=== PATIENT | male | born 1990 | race Caucasian/White ===

== ENCOUNTER 2018-03-20 05:02 | Emergency (ER) | payer SELFPAY ==
--- NOTE | 2018-03-20 07:55 | ER Document Report ---
ED Oral Problem - General Chief Complaint: Toothache Stated Complaint: TOOTH PAIN Time Seen by Provider: 03/20/18 07:14 Notes: 27-year-old male no significant medical history to the emergency department for evaluation of left wisdom tooth pain. Patient states that his wisdom teeth are coming in. Was told he needed to have them taken out but has not been able to afford it. The teeth are coming through the skin and pushing on the other teeth causing swelling and significant amount of pain. - HPI Patient complains to provider of: Jaw pain, Swelling of face, Swelling of jaw, Toothache Onset: Last week Onset: Gradual Quality of pain: Throbbing Severity: Moderate Pain Level: 3 Swollen jaw/face: Moderate Associated symptoms: None - Related Data Allergies/Adverse Reactions: No Known Allergies Allergy (Verified 03/20/18 05:46) Past Medical History - General Information source: Patient - Social History Smoking Status: Current Some Day Smoker Chew tobacco use (# tins/day): No Frequency of alcohol use: Occasional Drug Abuse: None Lives with: Parents Family History: Reviewed & Not Pertinent Patient has suicidal ideation: No Patient has homicidal ideation: No Renal/ Medical History: Denies: Hx Peritoneal Dialysis Review of Systems - Review of Systems Constitutional: denies: Fever, Malaise, Weakness EENT: Mouth pain, Mouth swelling, Dental problem. denies: Eye pain, Double vision, Difficulty swallowing Cardiovascular: denies: Chest pain, Palpitations, Dyspnea Gastrointestinal: denies: Diarrhea, Nausea, Vomiting Neurological/Psychological: denies: Confusion, Weakness, Headaches, Numbness Physical Exam - Vital signs Vitals: Temp Pulse Resp BP Pulse Ox 97.3 F 65 18 154/97 H 99 03/20/18 05:30 03/20/18 05:30 03/20/18 05:30 03/20/18 05:30 03/20/18 05:30 Interpretation: Normal - HEENT Head: Normocephalic, Atraumatic Eyes: Normal Pupils: PERRL Nasal: Normal Mouth/Lips: Other - There appears to be swelling along the left lower gumline at the molar area/wisdom teeth. Left lower wisdom tooth has erupted. There is a small amount of gumline swelling and erythema noted on the left lower gumline. Very tender to palpation. There is no obvious drainable abscess. Pharynx: Normal - Respiratory Respiratory status: No respiratory distress Chest status: Nontender Breath sounds: Normal Chest palpation: Normal - Cardiovascular Rhythm: Regular Heart sounds: Normal auscultation Murmur: No - Neurological Neuro grossly intact: Yes Cognition: Normal Orientation: AAOx4 [place] Coma Scale Eye Opening: Spontaneous [place] Coma Scale Verbal: Oriented [place] Coma Scale Motor: Obeys Commands Yumiko Coma Scale Total: 15 Speech: Normal Motor strength normal: LUE, RUE, LLE, RLE Sensory: Normal Course - Re-evaluation Re-evalutation: 03/20/18 08:05 Scribe antibiotics, pain medication. Advised patient definitely needs to have these teeth extracted. Information given for the community clinic as well as follow-up information for a dentist and surgeon. Will place on antibiotics and pain medication at this time. - Vital Signs Vital signs: Temp Pulse Resp BP Pulse Ox 97.3 F 65 18 154/97 H 99 03/20/18 05:30 03/20/18 05:30 03/20/18 05:30 03/20/18 05:30 03/20/18 05:30 Discharge - Discharge Clinical Impression: Pain due to dental caries Condition: Good Disposition: HOME, SELF-CARE Instructions: [facility], Oral Narcotic Medication ([facility]), Toothache ([facility]) Additional Instructions: Take the medications as prescribed. In the event that symptoms are getting worse are you are developing any additional symptoms please return for repeat evaluation. It will be very important that you follow-up with an oral surgeon or dentist as this tooth needs to be extracted. Prescriptions: Amoxicillin 1 tab PO TID 7 Days #21 tab Hydrocodone/Acetaminophen [[place] 5-325 mg Tablet] 1 tab PO TID 3 Days #9 tablet Ibuprofen [Motrin 800 mg Tablet] 800 mg PO Q8H PRN 10 Days #30 tab PRN Reason: For Pain Scale 3-4 Referrals: JOSHUA MAYERS DDS [NO LOCAL MD] - Follow up in 3-5 days CARRIE SAM MD [ACTIVE STAFF] - Follow up in 3-5 days
[2018-03-20 08:14] VITALS: BP 148/78
== END 2018-03-20 08:14 | disposition home or self-care (01) ==
LOC: ER 05:02
DX: K02.9 Dental caries, unspecified (principal); K08.89 Other specified disorders of teeth and supporting structures; R68.84 Jaw pain; R22.0 Localized swelling, mass and lump, head; F17.200 Nicotine dependence, unspecified, uncomplicated
CPT/HCPCS: 99282

== ENCOUNTER 2019-11-15 21:00 | Emergency (ER) | payer SELFPAY ==
--- NOTE | 2019-11-15 22:32 | ER Document Report ---
ED General - General Chief Complaint: Cough Stated Complaint: COUGH CHEST PAIN PENIAL PAIN Time Seen by Provider: 11/15/19 22:31 Primary Care Provider: JULISSA LANGE DO [NO LOCAL MD] - Follow up as needed Mode of Arrival: Ambulatory Information source: Patient TRAVEL OUTSIDE OF THE [place] IN LAST 30 DAYS: No - HPI Onset: Other - over the last 3 weeks Onset/Duration: Gradual Quality of pain: No pain Severity: Mild Pain Level: 1 Associated symptoms: None Exacerbated by: Other - palpation/manipulation of penis Relieved by: Denies Similar symptoms previously: No Recently seen / treated by doctor: No Notes: 28 year old male smoker with no significant PMH here in the ER for 3 weeks of a dry cough, several days of right ear pain, and also for a small painful red raised area on the shaft of his penis for the last several weeks. The patient shaves his area and he noticed the area several days after shaving. The patient says he squeezed the area on his penis several days ago and blood and a small amount of pus came out. The patient denies fevers, chills, sweats, nausea, vomiting, urinary symptoms, penile discharge. The patient is sexually active with one partner currently and he does not use protection. - Related Data Allergies/Adverse Reactions: No Known Allergies Allergy (Verified 11/15/19 21:12) Past Medical History - General Information source: Patient - Social History Smoking Status: Current Every Day Smoker Frequency of alcohol use: Heavy Drug Abuse: Prescription drugs Lives with: Alone Family History: Reviewed & Not Pertinent Patient has suicidal ideation: No Patient has homicidal ideation: No Renal/ Medical History: Denies: Hx Peritoneal Dialysis Review of Systems - Review of Systems Constitutional: No symptoms reported EENT: Ear pain Cardiovascular: No symptoms reported Respiratory: Cough Gastrointestinal: No symptoms reported Genitourinary: No symptoms reported Male Genitourinary: Other - small painful red area on left lateral shaft of penis Musculoskeletal: No symptoms reported Skin: Lesions - on shaft of penis (appears to be a ingrown hair) Hematologic/Lymphatic: No symptoms reported Neurological/Psychological: No symptoms reported -: Yes All other systems reviewed and negative Physical Exam - Vital signs Vitals: Temp Pulse Resp BP Pulse Ox 98.6 F 103 H 16 115/90 H 100 11/15/19 21:12 11/15/19 21:12 11/15/19 21:12 11/15/19 21:12 11/15/19 21:12 - Notes Notes: GENERAL: Well-appearing, well-nourished and in no acute distress. HEAD: Atraumatic, normocephalic. EYES: Pupils equal round and reactive to light, extraocular movements intact, sclera anicteric, conjunctiva are normal. ENT: External ears normal, Right TM is scarred but there does not appears to be erythema or bulging. Left TM normal. Both ear canals without drainage. Nares patent, oropharynx clear without exudates. Moist mucous membranes. NECK: Normal range of motion, supple without lymphadenopathy or JVD. LUNGS: Breath sounds clear to auscultation bilaterally and equal. No wheezes rales or rhonchi. HEART: Regular rate and rhythm without murmurs, rubs or gallops. ABDOMEN: Soft, nontender, normoactive bowel sounds. No guarding, no rebound. No masses appreciated. : Patient has shaved his area. Small mildly tender red raised area on left shaft of penis without drainage, ulceration, pus. No other lesions noted anywhere. No vesicles. EXTREMITIES: Normal range of motion, no pitting or edema. No clubbing or cyanosis. NEUROLOGICAL: Cranial nerves II through XII grossly intact. Normal speech, normal gait. PSYCH: Normal mood, normal affect. SKIN: See exam. Otherwise Warm, Dry, normal turgor, no rashes or lesions noted. Course - Re-evaluation Re-evalutation: 11/15/19 23:21 The patient is here in the ER for 3 weeks of a cough. He is a smoker and his chest xray is clear. Patient also wanted a lesion on his penis that looks like an ingrown hair looked at while he was in the ER. The area is likely from an ingrown hair as the patient says he was able to express a small amount of blood and pus from the area and he recently shaved the area. The red raised area is not ulcerated and there is no vesicle and there are no other areas like it. There is no drainable collections. The patient apparently has chronic right ear infections and he started taking some old Amoxicillin which he says has helped. I gave him a script for a full week of Amoxicillin so he could finish a course. Patient has no PCP so he was given follow up options. Patient had Chlamydia and Gonorrhea testing done which I suspect will be negative. - Vital Signs Vital signs: Temp Pulse Resp BP Pulse Ox 98.2 F 86 16 146/97 H 97 11/15/19 23:46 11/15/19 23:46 11/15/19 23:46 11/15/19 23:46 11/15/19 23:46 - Laboratory Laboratory results interpreted by me: 11/15/19 22:51 Urine Protein 30 H Urine Ketones 20 H Urine Bilirubin SMALL H Urine Urobilinogen 4.0 H - Diagnostic Test Radiology reviewed: Image reviewed, Reports reviewed Discharge - Discharge Clinical Impression: Cough, Ingrown hair Condition: Stable Disposition: HOME, SELF-CARE Instructions: Cough Suppressant & Expectorant Medications Additional Instructions: Follow up with a primary care doctor such as Dr. Lange or at the [facility] if your cough persists and if the lesion on your penis does not heal with topical antibiotic ointment. You were tested for Gonorrhea and Chlamydia today. You will be called if either test results positives. You also had a chest xray in the ER which was normal in appearance. Use over the counter cough medications as needed. Try to stop smoking as this will only worsen your cough. Prescriptions: Amoxicillin 875 mg PO BID #14 tablet Referrals: JUILSSA LANGE DO [NO LOCAL MD] - Follow up as needed
[2019-11-15 23:22] LABS: APPEARANCE,URINE SLIGHTLY-CLOUDY; BILIRUBIN,URINE SMALL (NEGATIVE); COLOR,URINE AMBER; GLUCOSE, URINE NEGATIVE (NEGATIVE); KETONES,URINE 20 mg/dL (NEGATIVE); LEUKOCYTE ESTERASE,URINE NEGATIVE (NEGATIVE); NITRITE,URINE NEGATIVE (NEGATIVE); PROTEIN,URINE 30 mg/dL (NEGATIVE); URINE SPECIFIC GRAVITY 1.026
--- NOTE | 2019-11-15 23:24 | RADIOLOGY REPORT (SQ) ---
EXAM DESCRIPTION: AP portable view of the chest CLINICAL HISTORY: 28 years Male, eval for pneumonia COMPARISON: None. FINDINGS: Lungs: Lungs are clear. No pneumonia or edema. No pneumothorax or pleural effusion. Mediastinum: Cardiac and mediastinal silhouette are normal. Bones: Osseous structures are normal. IMPRESSION: Unremarkable single view of the chest. No acute process.
[2019-11-15 23:49] VITALS: BP 146/97
[2019-11-16 01:05] LABS: CHLAM PCR NOT DETECTED (NOT DETECT)
== END 2019-11-15 23:58 | disposition home or self-care (01) ==
LOC: ER 21:00
DX: L73.1 Pseudofolliculitis barbae (principal); R05 Cough; R07.9 Chest pain, unspecified; N48.89 Other specified disorders of penis; H92.01 Otalgia, right ear; F17.200 Nicotine dependence, unspecified, uncomplicated
CPT/HCPCS: 71045; 81001; 87491; 87591; 99283

== ENCOUNTER 2019-12-16 22:38 | Emergency (ER) | payer SELFPAY ==
--- NOTE | 2019-12-17 00:08 | RADIOLOGY REPORT (SQ) ---
EXAM DESCRIPTION: XR FOOT 1-2 VIEWS COMPLETED DATE/TME: 12/16/2019 00:00 CLINICAL HISTORY: 29 years, Male, bone pain COMPARISON: None. NUMBER OF VIEWS: 2 TECHNIQUE: 2 views right foot LIMITATIONS: None. FINDINGS: Dorsal soft tissue swelling. Negative for acute fracture or dislocation. No soft tissue gas or radiopaque foreign body IMPRESSION: Dorsal soft tissue swelling. copyright 2010 [employer]- All Rights Reserved
[2019-12-17] MEDS ORDERED: NAPROXEN 250 MG TABLET PO ONE (00:59)
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
[2019-12-17 01:41] VITALS: BP 142/89
== END 2019-12-17 01:42 | disposition home or self-care (01) ==
LOC: ER 22:38
DX: S90.31XA Contusion of right foot, initial encounter (principal); M79.671 Pain in right foot; W51.XXXA Accidental striking against or bumped into by another person, initial encounter; F17.200 Nicotine dependence, unspecified, uncomplicated
CPT/HCPCS: 99283

== ENCOUNTER 2020-03-30 02:01 | Emergency (ER) | payer SELFPAY ==
[2020-03-30 04:56] LABS: APPEARANCE,URINE CLEAR; BILIRUBIN,URINE NEGATIVE (NEGATIVE); COLOR,URINE YELLOW; GLUCOSE, URINE NEGATIVE (NEGATIVE); KETONES,URINE NEGATIVE (NEGATIVE); LEUKOCYTE ESTERASE,URINE NEGATIVE (NEGATIVE); NITRITE,URINE NEGATIVE (NEGATIVE); PROTEIN,URINE NEGATIVE (NEGATIVE); URINE SPECIFIC GRAVITY 1.027
[2020-03-30 06:08] LABS: ABSOLUTE BASOPHILS # (AUTO) 0.1 10^3/uL (0.0-0.2); ABSOLUTE EOSINOPHILS # (AUTO) 0.3 10^3/uL (0.0-0.6); ABSOLUTE LYMPHOCYTES (AUTO) 1.9 10^3/uL (0.5-4.7); ABSOLUTE MONOCYTES (AUTO) 0.7 10^3/uL (0.1-1.4); ABSOLUTE NEUT (AUTO) 7.3 10^3/uL (1.7-8.2); BASOPHILS % (AUTO) 0.9 % (0-2); EOSINOPHILS % (AUTO) 2.8 % (0-6); HEMATOCRIT 49.8 % (37.9-51.0); LYMPHOCYTES % (AUTO) 18.3 % (13-45); MEAN CORPUSCULAR HEMOGLOBIN 30.2 pg (27.0-33.4); MEAN CORPUSCULAR HGB CONC 34.1 g/dL (32.0-36.0); MEAN CORPUSCULAR VOLUME 88 fl (80-97); MONOCYTES % (AUTO) 6.8 % (3-13); PLATELET COUNT 230 10^3/uL (150-450); RED BLOOD COUNT 5.64 10^6/uL (4.35-5.55); RED CELL DISTRIBUTION WIDTH 13.1 % (11.5-14.0); SEGMENTED NEUTROPHILS % (AUTO) 71.2 % (42-78); TOTAL CELLS COUNTED % (AUTO) 100 %; WHITE BLOOD COUNT 10.2 10^3/uL (4.0-10.5)
[2020-03-30 06:18] LABS: ALBUMIN 4.3 g/dL (3.5-5.0); ALKALINE PHOSPHATASE 61 U/L (38-126); ANION GAP 8 (5-19); ASPARTATE AMINO TRANSFERASE 28 U/L (17-59); BILIRUBIN,DIRECT 0.2 mg/dL (0.0-0.4); BILIRUBIN,TOTAL 0.9 mg/dL (0.2-1.3); BLOOD UREA NITROGEN 17 mg/dL (7-20); CALCIUM 9.2 mg/dL (8.4-10.2); CARBON DIOXIDE 30 mmol/L (22-30); CHLORIDE 101 mmol/L (98-107); GLUCOSE 77 mg/dL (75-110); POTASSIUM 4.2 mmol/L (3.6-5.0); TOTAL PROTEIN 6.8 g/dL (6.3-8.2)
[2020-03-30 06:29] VITALS: BP 135/91
--- NOTE | 2020-03-30 09:03 | ER Document Report ---
ED GI/ - General Chief Complaint: Abdominal Pain Stated Complaint: MUSCLE PAIN Time Seen by Provider: 03/30/20 08:53 Primary Care Provider: NEERAJ PARISH MD [ACTIVE STAFF] - Follow up as needed JUAN F GOODMAN MD [ACTIVE STAFF] - Follow up as needed VERITO NEWMAN MD [ACTIVE STAFF] - Follow up as needed Mode of Arrival: Ambulatory Information source: Patient Notes: Patient states that he developed upper abdominal pain that wrapped around to the thoracic back area that started yesterday around 8 PM. Patient states that he took multiple doses of Percocet at home in an attempt to manage his pain. Patient denies any nausea or vomiting but does report diarrhea x1 episode. Patient denies any fever, cough or cold symptoms. Patient denies any urinary symptoms. Patient reports pain is presently resolved at this time. TRAVEL OUTSIDE OF THE [place] IN LAST 30 DAYS: No - HPI Patient complains to provider of: Abdominal pain Onset: Yesterday Timing/Duration: Gone Quality of pain: Sharp Severity at maximum: Severe Severity in ED: None Pain Level: Denies Location: Other - Upper abdominal tenderness Associated symptoms: Diarrhea Exacerbated by: Denies Relieved by: Denies Similar symptoms previously: No Recently seen / treated by doctor: No - Related Data Allergies/Adverse Reactions: hydrocodone Allergy (Verified 03/30/20 03:27) Past Medical History - General Information source: Patient - Social History Smoking Status: Former Smoker Frequency of alcohol use: Quit alcohol 1 month ago Drug Abuse: Marijuana Occupation: Real estate Family History: Reviewed & Not Pertinent - Medical History Medical History: Negative Renal/ Medical History: Denies: Hx Peritoneal Dialysis Past Surgical History: Reports: Hx Adenoidectomy, Hx Appendectomy, Hx Myringoto my, Hx Orthopedic Surgery, Hx Tonsillectomy Review of Systems - Review of Systems Constitutional: No symptoms reported. denies: Fever EENT: No symptoms reported Cardiovascular: No symptoms reported. denies: Chest pain Respiratory: No symptoms reported. denies: Cough, Short of breath Gastrointestinal: Abdominal pain, Diarrhea. denies: Vomiting Genitourinary: No symptoms reported Male Genitourinary: No symptoms reported Musculoskeletal: Back pain Skin: No symptoms reported Hematologic/Lymphatic: No symptoms reported Neurological/Psychological: No symptoms reported Physical Exam - Vital signs Vitals: Temp Pulse Resp BP Pulse Ox 98.3 F 99 16 169/105 H 98 03/30/20 03:28 03/30/20 03:28 03/30/20 03:28 03/30/20 03:28 03/30/20 03:28 - Notes Notes: PHYSICAL EXAMINATION: GENERAL: Well-appearing and in no acute distress. HEAD: Atraumatic, normocephalic. EYES: sclera anicteric, conjunctiva are normal. ENT: nares patent. Moist mucous membranes. NECK: Normal range of motion, supple without lymphadenopathy LUNGS: CTAB and equal. No wheezes rales or rhonchi. HEART: Regular rate and rhythm without murmurs ABDOMEN: Soft, nontender, normal bowel sounds, no guarding. EXTREMITIES: Normal range of motion, no pitting edema. No cyanosis. BACK: No CVA tenderness NEUROLOGICAL: Cranial nerves grossly intact. Normal speech. Normal gait. PSYCH: Normal mood, normal affect. SKIN: Warm, Dry, normal turgor, no rashes or lesions noted Course - Re-evaluation Re-evalutation: 03/30/20 10:31 Patient denies any pain symptoms at this time. Abdomen soft, nontender, no guarding. Ultrasound reviewed without any evidence for any cholelithiasis. Patient does have incidental finding of fatty liver. Patient advised that this finding. Patient encouraged to follow-up with GI specialist for any persistent pain or problems. Patient presents with abdominal pain without signs of pe ritonitis or other life-threatening or serious etiology. Patient appears stable for discharge and has been instructed to return immediately if the symptoms worsen in any way. - Vital Signs Vital signs: Temp Pulse Resp BP Pulse Ox 98.3 F 62 16 135/91 H 99 03/30/20 03:28 03/30/20 06:18 03/30/20 03:28 03/30/20 06:18 03/30/20 06:18 - Laboratory Result Diagrams: 03/30/20 05:15 03/30/20 05:15 Laboratory results interpreted by me: 03/30/20 03/30/20 03:37 05:15 RBC 5.64 H Urine Urobilinogen 2.0 H 03/30/20 10:31 Labs- All tests 24 hr 03/30/20 03/30/20 03/30/20 03:37 05:15 05:15 WBC 10.2 RBC 5.64 H Hgb 17.0 Hct 49.8 MCV 88 MCH 30.2 MCHC 34.1 RDW 13.1 Plt Count 230 Lymph % (Auto) 18.3 Gage % (Auto) 6.8 Eos % (Auto) 2.8 Baso % (Auto) 0.9 Absolute Neuts (auto) 7.3 Absolute Lymphs (auto) 1.9 Absolute Monos (auto) 0.7 Absolute Eos (auto) 0.3 Absolute Basos (auto) 0.1 Seg Neutrophils % 71.2 Sodium 138.6 Potassium 4.2 Chloride 101 Carbon Dioxide 30 Anion Gap 8 BUN 17 Creatinine 0.76 Est GFR ( Amer) > 60 Est GFR (MDRD) Non-Af > 60 Glucose 77 Calcium 9.2 Total Bilirubin 0.9 Direct Bilirubin 0.2 Neonat Total Bilirubin Not Reportable Neonat Direct Bilirubin Not Reportable Neonat Indirect Bili Not Reportable AST 28 ALT 43 Alkaline Phosphatase 61 Creatine Kinase Total Protein 6.8 Albumin 4.3 Lipase 35.4 Urine Color YELLOW Urine Appearance CLEAR Urine pH 5.0 Ur Specific [place] 1.027 Urine Protein NEGATIVE Urine Glucose (UA) NEGATIVE Urine Ketones NEGATIVE Urine Blood NEGATIVE Urine Nitrite NEGATIVE Urine Bilirubin NEGATIVE Urine Urobilinogen 2.0 H Ur Leukocyte Esterase NEGATIVE Urine WBC (Auto) 0 Urine RBC (Auto) 0 Urine Mucus (Auto) MANY Urine Ascorbic Acid NEGATIVE 03/30/20 05:15 WBC RBC Hgb Hct MCV MCH MCHC RDW Plt Count Lymph % (Auto) Gage % (Auto) Eos % (Auto) Baso % (Auto) Absolute Neuts (auto) Absolute Lymphs (auto) Absolute Monos (auto) Absolute Eos (auto) Absolute Basos (auto) Seg Neutrophils % Sodium Potassium Chloride Carbon Dioxide Anion Gap BUN Creatinine Est GFR ( Amer) Est GFR (MDRD) Non-Af Glucose Calcium Total Bilirubin Direct Bilirubin Neonat Total Bilirubin Neonat Direct Bilirubin Neonat Indirect Bili AST ALT Alkaline Phosphatase Creatine Kinase 59 Total Protein Albumin Lipase Urine Color Urine Appearance Urine pH Ur Specific [place] Urine Protein Urine Glucose (UA) Urine Ketones Urine Blood Urine Nitrite Urine Bilirubin Urine Urobilinogen Ur Leukocyte Esterase Urine WBC (Auto) Urine RBC (Auto) Urine Mucus (Auto) Urine Ascorbic Acid - Diagnostic Test Radiology reviewed: Reports reviewed Discharge - Discharge Clinical Impression: Resolved abdominal pain Condition: Stable Disposition: HOME, SELF-CARE Instructions: Abdominal Pain ([facility]) Additional Instructions: Return immediately for any new or worsening symptoms Followup with your primary care provider, call tomorrow to make a followup appointment Follow-up with a hide inspector and sorter for any persistent pain or problems Referrals: VERITO NEWMAN MD [ACTIVE STAFF] - Follow up as needed JUAN F GOODMAN MD [ACTIVE STAFF] - Follow up as needed NEERAJ PARISH MD [ACTIVE STAFF] - Follow up as needed
--- NOTE | 2020-03-30 09:48 | RADIOLOGY REPORT (SQ) ---
EXAM DESCRIPTION: U/S ABDOMEN COMPLETE W/O DOP IMAGES COMPLETED DATE/TIME: 03/30/2020 9:33 am REASON FOR STUDY: upper abd pain COMPARISON: None. TECHNIQUE: Dynamic and static grayscale images acquired of the abdomen and recorded on PACS. Additio nal selected color Doppler and spectral images recorded. Note: Study does not meet criteria for complete doppler/duplex scan LIMITATIONS: None. FINDINGS: PANCREAS: No masses. Visualized pancreatic duct normal caliber. LIVER: Fatty infiltration with focal sparing about the gallbladder fossa. No focal mass lesion. No intrahepatic biliary dilatation. LIVER VASCULATURE: Normal directional flow of the main portal vein and hepatic veins. GALLBLADDER: No stones. Normal wall thickness. No pericholecystic fluid. ULTRASOUND-DETECTED NESS'S SIGN: Negative. INTRAHEPATIC DUCTS AND COMMON DUCT: CBD and intrahepatic ducts normal caliber. No filling defects. INFERIOR VENA CAVA: Normal flow. AORTA: No aneurysm. RIGHT KIDNEY: Normal size. Normal echogenicity. No solid or suspicious masses. No hydronephros is. No calcifications. LEFT KIDNEY: Normal size. Normal echogenicity. No solid or suspicious masses. No hydronephrosi s. No calcifications. SPLEEN: Normal size. No solid masses. PERITONEAL AND PLEURAL SPACES: No ascites or effusions. OTHER: No other significant finding. IMPRESSION: Hepatic steatosis. Otherwise normal sonographic appearance of the abdominal viscera. TECHNICAL DOCUMENTATION: JOB ID: [id number] 2010 [employer]- All Rights Reserved Reading location - IP/workstation name: [email or web address]
== END 2020-03-30 10:58 | disposition home or self-care (01) ==
LOC: ER 02:01
DX: R10.10 Upper abdominal pain, unspecified (principal); R19.7 Diarrhea, unspecified; M54.9 Dorsalgia, unspecified; K76.0 Fatty (change of) liver, not elsewhere classified; F12.10 Cannabis abuse, uncomplicated; Z87.891 Personal history of nicotine dependence
CPT/HCPCS: 36415; 76700; 80053; 81001; 82550; 83690; 85025; 99284

== ENCOUNTER 2020-07-19 10:20 | Emergency (ER) | payer SELFPAY ==
[2020-07-19 10:31] VITALS: BP 158/105
--- NOTE | 2020-07-19 11:46 | ER Document Report ---
HPI - HPI Patient complains to provider of: Left arm pain Time Seen by Provider: 07/19/20 11:36 Onset: Yesterday Onset/Duration: Gradual Quality of pain: Achy Pain Level: 4 Context: Patient presents complaining of left upper arm pain that started yesterday. Patient reports getting bit by an insect while fishing. Patient denies any other trauma to the arm. Patient is of increased pain with flexion of the left upper arm. Patient denies any history of drug abuse. Associated Symptoms: denies: Fever, Headache, Nausea, Vomiting Exacerbated by: Movement Relieved by: Denies Similar symptoms previously: No Recently seen / treated by doctor: No - ROS ROS below otherwise negative: Yes Systems Reviewed and Negative: Yes All other systems reviewed and negative - CONSTITUTIONAL Constitutional: DENIES: Fever, Chills - NEURO Neurology: DENIES: Weakness - GASTROINTESTINAL Gastrointestinal: DENIES: Nausea - MUSCULOSKELETAL Musculoskeletal: REPORTS: Extremity pain - DERM Skin Problems: Rash - Insect bite Past Medical History - General Information source: Patient - Social History Smoking Status: Current Every Day Smoker Frequency of alcohol use: Occasional Drug Abuse: None Occupation: [employer] Family History: Reviewed & Not Pertinent - Medical History Medical History: Negative Renal/ Medical History: Denies: Hx Peritoneal Dialysis Past Surgical History: Reports: Hx Adenoidectomy, Hx Appendectomy, Hx Myringotomy, Hx Orthopedic Surgery, Hx Tonsillectomy Vertical Provider Document - CONSTITUTIONAL Agree With Documented VS: Yes Exam Limitations: No Limitations General Appearance: WD/WN, No Apparent Distress - INFECTION CONTROL TRAVEL OUTSIDE OF THE [place] IN LAST 30 DAYS: No - HEENT HEENT: Atraumatic, Normocephalic - NECK Neck: Normal Inspection - RESPIRATORY Respiratory: Breath Sounds Normal, No Respiratory Distress - CARDIOVASCULAR Cardiovascular: Regular Rate, Regular Rhythm Pulses: Normal: Radial - BACK Back: Normal Inspection - MUSCULOSKELETAL/EXTREMETIES Musculoskeletal/Extremeties: MAEW, FROM, Tender - Tenderness to distal third of left upper arm, patient with small erythematous macular lesion, no induration, no fluctuance, no concern for abscess., No Edema Notes: Soft muscle compartment, patient with full range of motion - NEURO Level of Consciousness: Awake, Alert, Appropriate Motor/Sensory: No Motor Deficit - DERM Integumentary: Warm, Dry. negative: Abscess Course - Re-evaluation Re-evalutation: 12/31/20 11:45 Patient with tenderness with range of motion to left upper arm, discussed with patient possibility of muscle strain. Patient does have erythematous skin lesion at site of reported insect bite. No concern for drainable abscess at this time, no concern for compartment syndrome. Will treat symptomatically. Good return precautions discussed with patient. - Vital Signs Vital signs: Temp Pulse Resp BP Pulse Ox 98.1 F 96 16 158/105 H 97 07/19/20 10:30 07/19/20 10:30 07/19/20 10:30 07/19/20 10:30 07/19/20 10:30 - Laboratory Results Critical Laboratory Results Reviewed: No Critical Results - Radiology Results Critical Radiology Results Reviewed: No Critical Results Discharge - Discharge Clinical Impression: Left arm pain Insect bite Qualifiers: Encounter type: initial encounter Site of insect bite: upper arm Laterality: left Qualified Code(s): S40.862A - Insect bite (nonvenomous) of left upper arm, initial encounter Condition: Stable Disposition: HOME, SELF-CARE Instructions: Anti-Inflammatory Medication ([facility]), Cephalexin ([facility]), Insect Bites ([facility]), Muscle Relaxers ([facility]), Muscle Strain ([facility]) Additional Instructions: Return immediately for any new or worsening symptoms: Fever, streaks, swelling, any concerning new symptoms Followup with your primary care provider, call tomorrow to make a followup appointment Prescriptions: Cephalexin Monohydrate [Keflex 500 mg Capsule] 500 mg PO Q6H 5 Days #20 capsule Naproxen [Naprosyn 250 Nmg Tablet] 1 tab PO BID #14 tablet Methocarbamol [Robaxin 500 Mg Tablet] 500 mg PO QID PRN #24 tablet PRN Reason: Referrals: [facility] [Provider Group] - Follow up as needed
== END 2020-07-19 11:47 | disposition home or self-care (01) ==
LOC: ER 10:20
DX: S40.862A Insect bite (nonvenomous) of left upper arm, initial encounter (principal); W57.XXXA Bitten or stung by nonvenomous insect and other nonvenomous arthropods, initial encounter; Y93.19 Activity, other involving water and watercraft; F17.200 Nicotine dependence, unspecified, uncomplicated
CPT/HCPCS: 99283